=== PATIENT | female | born 1985 | race Caucasian/White ===

== ENCOUNTER 2016-05-19 18:19 | Emergency (ER) | payer OTHER ==
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
[2016-05-19] MEDS ORDERED: CYCLOBENZAPRINE HCL 10 MG TABLET PO ONE (21:11)
[2016-05-19] MEDS ORDERED: NAPROXEN SODIUM 550 MG TABLET PO ONE (21:11)
[2016-05-19] MEDS ORDERED: NAPROXEN SODIUM 550 MG TABLET ONE (21:14)
[2016-05-19] MEDS ORDERED: CYCLOBENZAPRINE HCL 10 MG TABLET ONE (21:14)
[2016-05-19 21:24] VITALS: BP 120/88
== END 2016-05-19 21:25 | disposition home or self-care (01) ==
LOC: ER 18:19
DX: S13.4XXA Sprain of ligaments of cervical spine, initial encounter (principal); F17.210 Nicotine dependence, cigarettes, uncomplicated; K21.9 Gastro-esophageal reflux disease without esophagitis; V49.9XXA Car occupant (driver) (passenger) injured in unspecified traffic accident, initial encounter